=== PATIENT | female | born 1995 | race American Indian/Alaskan Native ===

== ENCOUNTER 2017-05-13 04:25 | Emergency (ER) | payer OTHER ==
[2017-05-13 05:46] LABS: Basophils % (Auto) 0.2 % (0.0-1.8); Eosinophils # (Auto) 0.1 K/mm3 (0.0-0.4); Eosinophils % (Auto) 0.7 % (0.0-4.3); Hematocrit 39.7 % (30.3-42.9); Hemoglobin 13.4 gm/dl (10.1-14.3); Lymphocytes # (Auto) 1.8 K/mm3 (1.2-5.4); Lymphocytes % (Auto) 19.2 % (13.4-35.0); Mean Corpuscular HGB Conc 34 % (30-34); Mean Corpuscular Hemoglobin 28 pg (28-32); Mean Corpuscular Volume 84 fl (79-97); Monocytes # (Auto) 0.4 K/mm3 (0.0-0.8); Monocytes % (Auto) 4.3 % (0.0-7.3); Platelet Count 181 K/mm3 (140-440); Red Blood Count 4.72 M/mm3 (3.65-5.03); Red Cell Distribution Width 13.5 % (13.2-15.2)
[2017-05-13 05:54] LABS: Alanine Aminotransferase 10 units/L (7-56); Albumin 4.4 g/dL (3.9-5); BUN/Creatinine Ratio 18; Blood Urea Nitrogen 7 mg/dL (7-17); Calcium 9.1 mg/dL (8.4-10.2); Hemolysis Index 4
[2017-05-13 07:09] LABS: Bacteria,Urine 1+ /HPF (Negative); Bilirubin,Urine NEG (Negative); Blood,Urine NEG (Negative); Calcium Oxalate Crystals,Urine 1+; Color,Urine Amber (Yellow); Hyaline Casts,Urine 10 /LPF; Mucus,Urine 3+ /HPF; Urobilinogen,Urine < 2.0 mg/dL (<2.0)
[2017-05-13] MEDS ORDERED: NACL 0.9% 1000 ML 1,000 ML IV ONE (07:20)
[2017-05-13] MEDS ORDERED: ZOFRAN IV ONE (07:20)
--- NOTE | 2017-05-13 08:18 | Ultrasound Report ---
FINAL REPORT EXAM: US OB < = 14 WEEKS FETUS HISTORY: abd pain 11 wks COMPARISONS: None. FINDINGS: Transabdominal grayscale, M-mode and color Doppler first-trimester ultrasound Single living intrauterine with recorded cardiac activity of 160 beats per minute. biometry composite corresponds to estimated gestational age of 13 weeks 0 days and delivery date of 11/18/2017. No perigestational hemorrhage. Biparietal diameter is 2.2 cm Femoral length is 0.8 cm No significant free fluid in the pelvis. The ovaries are sonographically unremarkable and measure 2.4 x 1.1 x 1.8 cm on the right and 2.4 x 1.4 x 2.8 cm on the left. IMPRESSION: Single living intrauterine with estimated gestational age of 13 weeks 0 days and delivery date of 11/18/2017 based on ultrasound today. No evident complication. Follow-up anatomy scan is recommended at 20 weeks. Consider sooner follow-up if warranted by patient's symptoms.
--- NOTE | 2017-05-13 08:20 | Ultrasound Report ---
FINAL REPORT EXAM: US ABDOMEN LIMITED HISTORY: RUQ and back pain COMPARISONS: None FINDINGS: Grayscale and color Doppler ultrasound evaluation of the right upper abdomen The imaged portion of the liver is normal in size and contour. Hepatic parenchymal echogenicity is within normal limits. No parenchymal lesion identified. No intra or extrahepatic biliary ductal dilatation. The common duct measures approximately 3 millimeters in caliber. Prior cholecystectomy. Imaged portion of the abdominal aorta is unremarkable. Imaged portion of the pancreatic head is sonographically unremarkable. The remainder of the pancreas is not well seen secondary to overlying bowel gas. No abdominal ascites or free fluid in Hebert's pouch. The right kidney measures up to 10 cm in length and is without hydronephrosis or echogenic shadowing foci to suggest nephrolithiasis. IMPRESSION: Prior cholecystectomy. Otherwise unremarkable right upper quadrant ultrasound.
[2017-05-13 08:35] LABS: Alanine Aminotransferase 8 units/L (7-56); Albumin 3.8 g/dL (3.9-5); BUN/Creatinine Ratio 18; Bilirubin,Direct < 0.2 mg/dL (0-0.2); Blood Urea Nitrogen 7 mg/dL (7-17); Hemolysis Index 16; Lipase 28 units/L (13-60)
--- NOTE | 2017-05-13 10:03 | Emergency Department Report ---
ED General Adult HPI - General Chief complaint: Abdominal Pain Stated complaint: ABD PAIN WITH THROWING UP Time Seen by Provider: 05/13/17 07:02 Source: patient Mode of arrival: Ambulatory Limitations: No Limitations - History of Present Illness Initial comments: The patient was seen by her outside machinist apprentice 2 days ago and apparently placed on azithromycin, metronidazole and nitrofurantoin. She was told she had a UTI. She did not get her medicines filled until last night. She came here because of lower abdominal discomfort associated with nausea. She has not been vomiting since she arrived in the emergency department but did prior to arrival. She believes she is 11 weeks based on prior ultrasound report. She denies vaginal bleeding. Her abdominal discomfort is actually in her right upper quadrant. It does not radiate. She has had a prior cholecystectomy. -: Gradual, hour(s) Location: abdomen Radiation: non-radiation Quality: aching Consistency: intermittent, now resolved Improves with: none Worsens with: none Associated Symptoms: denies other symptoms Treatments Prior to Arrival: none - Related Data Allergies Allergy/AdvReac Type Severity Reaction Status Date / Time Sulfa (Sulfonamide Allergy Swelling Verified 05/13/17 04:52 Antibiotics) ED Review of Systems ROS: Stated complaint: ABD PAIN WITH THROWING UP Other details as noted in HPI Constitutional: denies: chills, fever Eyes: denies: eye pain, eye discharge, vision change ENT: denies: ear pain, throat pain Respiratory: denies: cough, shortness of breath, wheezing Cardiovascular: denies: chest pain, palpitations Endocrine: no symptoms reported Gastrointestinal: abdominal pain, nausea, vomiting. denies: diarrhea Genitourinary: denies: urgency, dysuria, discharge Musculoskeletal: denies: back pain, joint swelling, arthralgia Skin: denies: rash, lesions Neurological: denies: headache, weakness, paresthesias Psychiatric: denies: anxiety, depression Hematological/Lymphatic: denies: easy bleeding, easy bruising ED Past Medical Hx - Past Medical History Previous Medical History?: Yes Hx Asthma: Yes - Surgical History Past Surgical History?: Yes Hx Cholecystectomy: Yes - Social History Smoking Status: Current Some Day Smoker Substance Use Type: None ED Physical Exam - General Limitations: No Limitations General appearance: alert, in no apparent distress - Head Head exam: Present: atraumatic, normocephalic - Eye Eye exam: Present: normal appearance, PERRL, EOMI. Absent: scleral icterus - ENT ENT exam: Present: mucous membranes moist - Neck Neck exam: Present: normal inspection. Absent: tenderness, meningismus - Respiratory Respiratory exam: Present: normal lung sounds bilaterally. Absent: respiratory distress - Cardiovascular Cardiovascular Exam: Present: regular rate, normal rhythm. Absent: systolic murmur, diastolic murmur, rubs, gallop - GI/Abdominal GI/Abdominal exam: Present: soft, normal bowel sounds. Absent: distended, tenderness, guarding, rebound, rigid, diminished bowel sounds, organomegaly, mass, bruit, pulsatile mass, hernia - Extremities Exam Extremities exam: Present: normal inspection - Back Exam Back exam: Present: normal inspection - Neurological Exam Neurological exam: Present: alert, oriented X3, CN II-XII intact. Absent: motor sensory deficit - Psychiatric Psychiatric exam: Present: normal affect, normal mood - Skin Skin exam: Present: warm, dry, intact, normal color. Absent: rash ED Course Vital Signs 05/13/17 05/13/17 04:52 08:06 Temperature 97.7 F Pulse Rate 113 H Respiratory 16 18 Rate Blood Pressure 115/79 O2 Sat by Pulse 97 Oximetry - Reevaluation(s) Reevaluation #1: Patient essentially rested counseled bleed. She is now asymptomatic. She is ready for discharge. Given copies of her ultrasound reports. She will be given Rocephin 1 and consideration of a UTI. She was told that her OB physician should check the results of her urine culture in 2-3 days 05/13/17 10:03 ED Medical Decision Making - Lab Data Result diagrams: 05/13/17 05:08 05/13/17 07:59 Laboratory Results - last 24 hr 05/13/17 05/13/17 05/13/17 05:08 05:08 05:08 WBC 9.5 RBC 4.72 Hgb 13.4 Hct 39.7 MCV 84 MCH 28 MCHC 34 RDW 13.5 Plt Count 181 Lymph % (Auto) 19.2 [place] % (Auto) 4.3 Eos % (Auto) 0.7 Baso % (Auto) 0.2 Lymph # 1.8 [place] # 0.4 Eos # 0.1 Baso # 0.0 Seg Neutrophils % 75.6 H Seg Neutrophils # 7.2 Sodium 138 Potassium 4.3 Chloride 99.9 Carbon Dioxide 24 Anion Gap 18 BUN 7 Creatinine 0.4 L Estimated GFR > 60 BUN/Creatinine Ratio 18 Glucose 88 Calcium 9.1 Total Bilirubin 0.50 Direct Bilirubin Indirect Bilirubin AST 10 ALT 10 Alkaline Phosphatase 68 Total Protein 7.3 Albumin 4.4 Albumin/Globulin Ratio 1.5 Lipase HCG, Quant 47073 H Urine Color Urine Turbidity Urine pH Ur Specific [place] Urine Protein Urine Glucose (UA) Urine Ketones Urine Blood Urine Nitrite Urine Bilirubin Urine Urobilinogen Ur Leukocyte Esterase Urine WBC (Auto) Urine RBC (Auto) U Epithel Cells (Auto) Urine Bacteria (Auto) Calcium Oxalate Crystal Hyaline Casts Urine Mucus Blood Type 05/13/17 05/13/17 05/13/17 06:27 07:00 07:59 WBC RBC Hgb Hct MCV MCH MCHC RDW Plt Count Lymph % (Auto) [place] % (Auto) Eos % (Auto) Baso % (Auto) Lymph # [place] # Eos # Baso # Seg Neutrophils % Seg Neutrophils # Sodium 135 L Potassium 4.1 Chloride 100.2 Carbon Dioxide 23 Anion Gap 16 BUN 7 Creatinine 0.4 L Estimated GFR > 60 BUN/Creatinine Ratio 18 Glucose 83 Calcium 9.0 Total Bilirubin 0.50 Direct Bilirubin < 0.2 Indirect Bilirubin 0.3 AST 10 ALT 8 Alkaline Phosphatase 59 Total Protein 6.6 Albumin 3.8 L Albumin/Globulin Ratio 1.4 Lipase 28 HCG, Quant Urine Color [place] Urine Turbidity Slightly cloudy Urine pH 5.0 Ur Specific [place] 1.028 Urine Protein 100 mg/dl Urine Glucose (UA) 50 Urine Ketones 20 Urine Blood Neg Urine Nitrite Neg Urine Bilirubin Neg Urine Urobilinogen < 2.0 Ur Leukocyte Esterase Mod Urine WBC (Auto) 61.0 H Urine RBC (Auto) 9.0 U Epithel Cells (Auto) 72.0 H Urine Bacteria (Auto) 1+ Calcium Oxalate Crystal 1+ Hyaline Casts 10 Urine Mucus 3+ Blood Type A POSITIVE - Radiology Data Radiology results: report reviewed Critical care attestation.: If time is entered above; I have spent that time in minutes in the direct care of this critically ill patient, excluding procedure time. ED Disposition Clinical Impression: with 13 completed weeks gestation Acute cystitis Qualifiers: Hematuria presence: without hematuria Qualified Code(s): N30.00 - Acute cystitis without hematuria Disposition: TO HOME OR SELFCARE Is pt being admited?: No Does the pt Need Aspirin: No Condition: Stable Instructions: Abdominal Pain (ED), Urinary Tract Infection in Women (ED), (ED), Morning Sickness (ED) Additional Instructions: Continue prescriptions given by her outside machinist apprentice. I'm going to give her a prescription for something for nausea if you needed. You were given one dose of ceftriaxone which is an antibiotic for urinary tract infection here. A urine culture result will be ready in 2-3 days. Your OB doctor should check this. Bring your OB doctor the ultrasound reports that I have given you. Return to the emergency department nausea vomiting fever or significant abdominal pain or vaginal bleeding as needed. Referrals: usual, outside machinist apprentice [Other] - 2-3 Days Time of Disposition: 10:07
[2017-05-13] MEDS ORDERED: ROCEPHIN/NS 1 GM/50 ML 1 GM/50 ML BAG IV ONE (10:04)
[2017-05-13] MEDS ORDERED: cefTRIAXone 1 GM in NACL 0.9% 20 ML IV ONE (10:45)
[2017-05-13 12:06] VITALS: BP 107/60
== END 2017-05-13 12:05 | disposition home or self-care (01) ==
LOC: ED 04:25
DX: O23.11 Infections of bladder in pregnancy, first trimester (principal); O99.511 Diseases of the respiratory system complicating pregnancy, first trimester; J45.909 Unspecified asthma, uncomplicated; O99.331 Smoking (tobacco) complicating pregnancy, first trimester; F17.200 Nicotine dependence, unspecified, uncomplicated; Z3A.13 13 weeks gestation of pregnancy; Z90.49 Acquired absence of other specified parts of digestive tract; Z88.2 Allergy status to sulfonamides
CPT/HCPCS: 36415; 76705; 76801; 80048; 80053; 80074; 81001; 83690; 84702; 85025; 86900; 86901; 87076; 87086; 87186; 96361; 96365; 96375; 99284; J0696; J2405; J7030